=== PATIENT | female | born 1970 | race Caucasian/White ===

== ENCOUNTER 2020-12-22 18:57 | Inpatient (IN) | payer OTHER ==
[~2020-12-22] VITALS: Ht 162.6 cm; Wt 122.9 kg
[~2020-12-22 18:57] MED LIST: ALBUTEROL1.25 MG/3 INH; BENTYL 20MG TAB20 MG PO; CEFPODOXIME PR200 MG PO; COUGH SYRU100 MG/5 M PO; GABAPENTIN600 MG PO; INCRUSE ELLI62.5 MCG INH; K-DUR TAB 10 M10 MEQ PO; LASIX40 MG PO; LOPERAMIDE2 M1 PO; NEURONTIN 400400 MG PO; PROTONIX40 MG PO; SIMVASTATIN40 MG PO; SYMBICORT 16010.2 GM INH; TOPAMAX50 MG PO; TUDORZA PRESS400 MCG INH; VALTREX1000 MG PO; XYZAL5 MG PO; ZITHROMAX250 MG PO; ZOCOR40 MG PO
[2020-12-22 22:07] LABS: HEMOGLOBIN 16.9 gm/dl (12.3-15.3); RED BLOOD COUNT 5.1 M/UL (4.00-5.10)
[2020-12-22 22:34] LABS: BUN/CREATININE RATIO 17 (0-10)
[2020-12-23] MEDS ORDERED: HYDROXYZINE HCL25 MG PO (05:01)
[2020-12-23] MEDS ORDERED: VENTOLIN HFA 66.7 GM INH (05:02)
[2020-12-23 05:49] LABS: WHITE BLOOD COUNT 9.7 K/UL (4.5-11.0)
[2020-12-23 05:50] LABS: HEMOGLOBIN 14.9 gm/dl (12.3-15.3); RED BLOOD COUNT 4.56 M/UL (4.00-5.10)
[2020-12-23 06:08] LABS: BUN/CREATININE RATIO 17 (0-10)
[2020-12-23] MEDS ORDERED: NEURONTIN800 MG PO (09:09)
[2020-12-23] MEDS ORDERED: OMEPRAZOLE40 MG PO (09:11)
[2020-12-23] MEDS ORDERED: BACTRIM DS TAB1 EACH PO (09:12)
[2020-12-23] MEDS ORDERED: KENALOG 0.5% CR15 GM TOP (09:14)
[2020-12-23] MEDS ORDERED: DETROL LA4 MG PO (09:15)
[2020-12-23] MEDS ORDERED: BUMETANIDE2 MG PO ×2 (09:18→15:14)
[2020-12-23] MEDS ORDERED: ALDACTONE25 MG PO (09:32)
[2020-12-23] MEDS ORDERED: PROLASTIN C1000 MG IV (15:13)
[2020-12-25 07:18] LABS: BUN/CREATININE RATIO 12 (0-10)
[2020-12-26 04:08] LABS: HEMOGLOBIN 14.5 gm/dl (12.3-15.3); RED BLOOD COUNT 4.43 M/UL (4.00-5.10); WHITE BLOOD COUNT 9.4 K/UL (4.5-11.0)
[2020-12-26 04:26] LABS: BUN/CREATININE RATIO 10 (0-10)
[2020-12-26] MEDS ORDERED: ZYVOX600 MG PO (10:03)
[2020-12-26] MEDS ORDERED: K-DUR TAB 20 M20 MEQ PO (10:27)
== END 2020-12-26 14:13 | disposition home or self-care (01) | DRG 603 ==
LOC: ER1 18:57 → CDU 12-23 00:32 → MED SURG 4 12-23 00:32
PROVIDERS: Internal Medicine; Internal Medicine Infectious Disease; Physician Assistant; ADMIT Internal Medicine
DX: L03.115 Cellulitis of right lower limb (principal); E66.2 Morbid (severe) obesity with alveolar hypoventilation; Z68.42 Body mass index [BMI] 45.0-49.9, adult; I87.8 Other specified disorders of veins; J44.9 Chronic obstructive pulmonary disease, unspecified; Z66 Do not resuscitate; Z20.822 Contact with and (suspected) exposure to COVID-19; E88.01 Alpha-1-antitrypsin deficiency; E78.5 Hyperlipidemia, unspecified; F17.210 Nicotine dependence, cigarettes, uncomplicated; I89.0 Lymphedema, not elsewhere classified; E87.6 Hypokalemia; Z88.1 Allergy status to other antibiotic agents; Z88.0 Allergy status to penicillin; Z88.8 Allergy status to other drugs, medicaments and biological substances; Z79.01 Long term (current) use of anticoagulants; Z98.51 Tubal ligation status; Z90.49 Acquired absence of other specified parts of digestive tract
CPT/HCPCS: 36415; 80048; 80053; 83605; 83735; 84132; 85025; 85652; 86140; 87040; 94640; 94664; 94760; 96365; 99285; J1650; J2020; J2270; J2405; J3370; J7030; J7070; U0002

== ENCOUNTER → 2021-03-23 | Outpatient (CLI) | payer OTHER ==
[~2021-03-23] MED LIST changes: +ALDACTONE25 MG PO; +BACTRIM DS TAB1 EACH PO; +BUMETANIDE2 MG PO; +DETROL LA4 MG PO; +HYDROXYZINE HCL25 MG PO; +K-DUR TAB 20 M20 MEQ PO; +KENALOG 0.5% CR15 GM TOP; +NEURONTIN800 MG PO; +OMEPRAZOLE40 MG PO; +PROLASTIN C1000 MG IV; +VENTOLIN HFA 66.7 GM INH; +ZYVOX600 MG PO
== END ==
LOC: HEART 5 15:23
DX: J30.9 Allergic rhinitis, unspecified (principal); J44.9 Chronic obstructive pulmonary disease, unspecified
CPT/HCPCS: 36600; 71046; 82803; 94060; 94729

== ENCOUNTER → 2021-04-23 | Outpatient (CLI) | payer OTHER | LOC: KOH-I 11:04 | DX: M75.122 Complete rotator cuff tear or rupture of left shoulder, not specified as traumatic (principal); M19.012 Primary osteoarthritis, left shoulder | CPT/HCPCS: 73221 ==

== ENCOUNTER 2021-06-22 18:31 | Inpatient (IN) | payer OTHER ==
[~2021-06-22] VITALS: Ht 162.6 cm; Wt 127.1 kg
[2021-06-22 23:25] LABS: HEMOGLOBIN 14.2 gm/dl (12.3-15.3); RED BLOOD COUNT 4.43 M/UL (4.00-5.10); WHITE BLOOD COUNT 19.8 K/UL (4.5-11.0)
[2021-06-24 07:27] LABS: RED BLOOD COUNT 4.6 M/UL (4.00-5.10)
[2021-06-24 07:28] LABS: WHITE BLOOD COUNT 9.5 K/UL (4.5-11.0)
[2021-06-24 08:11] LABS: BUN/CREATININE RATIO 13 (0-10)
[2021-06-25] MEDS ORDERED: ZYVOX600 MG PO (09:59)
== END 2021-06-25 14:37 | disposition home health service (06) | DRG 872 ==
LOC: M/S 18:31 → PROG CARE 18:31 → M/S 06-23 20:25
PROVIDERS: ADMIT Internal Medicine Infectious Disease
DX: A41.9 Sepsis, unspecified organism (principal); L03.115 Cellulitis of right lower limb; Z68.42 Body mass index [BMI] 45.0-49.9, adult; N17.9 Acute kidney failure, unspecified; J44.9 Chronic obstructive pulmonary disease, unspecified; Z20.822 Contact with and (suspected) exposure to COVID-19; F17.210 Nicotine dependence, cigarettes, uncomplicated; I89.0 Lymphedema, not elsewhere classified; E78.5 Hyperlipidemia, unspecified; G47.33 Obstructive sleep apnea (adult) (pediatric); R65.20 Severe sepsis without septic shock; E66.01 Morbid (severe) obesity due to excess calories; Z96.612 Presence of left artificial shoulder joint; E88.01 Alpha-1-antitrypsin deficiency; Z98.890 Other specified postprocedural states; Z98.51 Tubal ligation status; Z88.0 Allergy status to penicillin; Z88.8 Allergy status to other drugs, medicaments and biological substances; Z88.1 Allergy status to other antibiotic agents; Z88.5 Allergy status to narcotic agent; Z79.899 Other long term (current) drug therapy
CPT/HCPCS: 36415; 80053; 83605; 85025; 87040; 97110; 97110-GP-CQ; 97161; 97530-GP-CQ; J1650; J2020; Q0177; U0002

== ENCOUNTER → 2021-07-14 | Outpatient (CLI) | payer OTHER | LOC: OPSV 13:00 | DX: Z53.9 Procedure and treatment not carried out, unspecified reason (principal) | CPT/HCPCS: G0463 ==

== ENCOUNTER 2022-05-03 14:41 | Emergency (ER) | payer OTHER ==
[2022-05-03 16:16] LABS: HEMOGLOBIN 15.6 gm/dl (12.3-15.3); RED BLOOD COUNT 4.91 M/UL (4.00-5.10); WHITE BLOOD COUNT 14.6 K/UL (4.5-11.0)
[2022-05-03 16:54] LABS: BUN/CREATININE RATIO 11 (0-10)
== END 2022-05-03 16:45 | disposition left against medical advice (07) ==
LOC: ER1 14:41
PROVIDERS: Emergency Medicine
DX: M79.671 Pain in right foot (principal)
CPT/HCPCS: 73630; 80053; 85025; 85652; 86140; 87040; 93971; 99281